=== PATIENT | male | born 2000 | race Two or more races ===

== ENCOUNTER 2020-03-11 11:36 | Emergency (ER) | payer SELFPAY ==
[2020-03-11 12:12] LABS: HEMATOCRIT 38.5 % (37.9-51.0); HEMOGLOBIN 13.9 g/dL (13.5-17.0); MEAN CORPUSCULAR HGB CONC 36.1 g/dL (32.0-36.0); MEAN CORPUSCULAR VOLUME 97 fl (80-97); PLATELET COUNT 227 10^3/uL (150-450); RED BLOOD COUNT 3.97 10^6/uL (4.35-5.55); RED CELL DISTRIBUTION WIDTH 13.2 % (11.5-14.0); WHITE BLOOD COUNT 5.9 10^3/uL (4.0-10.5)
[2020-03-11 12:34] LABS: ALBUMIN 4.1 g/dL (3.5-5.0); ALKALINE PHOSPHATASE 70 U/L (38-126); ASPARTATE AMINO TRANSFERASE 69 U/L (17-59); BILIRUBIN,TOTAL 0.5 mg/dL (0.2-1.3); BLOOD UREA NITROGEN 11 mg/dL (7-20); GLUCOSE 85 mg/dL (75-110); POTASSIUM 4.3 mmol/L (3.6-5.0); TOTAL PROTEIN 7.6 g/dL (6.3-8.2)
[2020-03-11 12:41] LABS: CARBON DIOXIDE 31 mmol/L (22-30); CHLORIDE 104 mmol/L (98-107)
[2020-03-11] MEDS ORDERED: NORMAL SALINE 1000 ML 1,000 ML IV ONE (12:41)
--- NOTE | 2020-03-11 12:42 | ER Document Report ---
ED General - General Chief Complaint: Cold Symptoms Stated Complaint: VOMITING,FEVER, DIARREHA Time Seen by Provider: 03/11/20 11:53 Mode of Arrival: Ambulatory Information source: Patient - HPI Notes: 19-year-old male presents emergency room for complaints of not feeling well over the last 2 weeks, was seen in urgent care and tested negative for COVID and mono. Patient states he is having fatigue, chills at home lightheadedness but also has been having nausea and vomited a couple of times. Patient states that he is a chronic marijuana user for well over a year and has increased due to COVID pandemic. Patient has not tried any alnj-nyr-cckuyan medications besides Tylenol. Denies fevers, chills, chest pain,palpitations, shortness of breath, dyspnea, diarrhea, abdominal pain, hematuria,blurred vision, double vision, loss of vision, speech changes, LH, dizziness, syncope, headaches, wheezing, ST, URI, neck pain, weakness, bowel or bladder dysfunction, saddle anesthesia, numbness or tingling in bilateral upper or lower extremities equally, muscle paralysis, weakness in bilateral upper or lower extremities equally or rash. Denies IV drug use. Patient states he is had low-grade fevers at home. MEDICATIONS: I agree with the patient medications as charted by the RN. ALLERGIES: I agree with the allergies as charted by the RN. PAST MEDICAL HISTORY/PAST SURGICAL HISTORY: Reviewed and agree as charted by RN. SOCIAL HISTORY: Reviewed and agree as charted by RN. FAMILY HISTORY: No significant familial comorbid conditions directly related to patient complaint EXAM: Reviewed vital signs as charted by RN. ALL OTHER SYSTEMS REVIEWED AND NEGATIVE. Dictation was performed using [employer] voice recognition software PHYSICAL EXAMINATION: GENERAL: Well-appearing, well-nourished and in no acute distress. HEAD: Atraumatic, normocephalic. EYES: Pupils equal round and reactive to light, extraocular movements intact, sclera anicteric, conjunctiva are normal. ENT: Nares patent, oropharynx clear without exudates. Moist mucous membranes. NECK: Normal range of motion, supple without lymphadenopathy LUNGS: Breath sounds clear to auscultation bilaterally and equal. No wheezes rales or rhonchi. HEART: Regular rate and rhythm without murmurs ABDOMEN: Soft, nontender, nondistended abdomen. No guarding, no rebound. No masses appreciated. Musculoskeletal: Normal range of motion, no pitting or edema. No cyanosis. NEUROLOGICAL: Cranial nerves grossly intact. Normal speech, normal gait. Normal sensory, motor exams PSYCH: Normal mood, normal affect. SKIN: Warm, Dry, normal turgor, no rashes or lesions noted. - Related Data Allergies/Adverse Reactions: No Known Allergies Allergy (Verified 03/11/20 14:02) Past Medical History - General Information source: Patient - Social History Smoking Status: Current Every Day Smoker Drug Abuse: Marijuana Family History: Reviewed & Not Pertinent Patient has homicidal ideation: No Review of Systems - Review of Systems Constitutional: No symptoms reported EENT: See HPI Cardiovascular: No symptoms reported Respiratory: No symptoms reported Gastrointestinal: No symptoms reported, Nausea, Vomiting. denies: Abdomen distended, Abdominal pain, Blood streaked bowels, Poor appetite, Poor fluid intake, Blood in vomit, Black stools, Rectal bleeding - last BM this morning. Genitourinary: No symptoms reported Male Genitourinary: No symptoms reported Musculoskeletal: No symptoms reported Skin: No symptoms reported Hematologic/Lymphatic: No symptoms reported Neurological/Psychological: No symptoms reported Physical Exam - Vital signs Vitals: Temp Pulse Resp BP Pulse Ox 98.1 F 93 18 118/66 99 03/11/20 12:04 03/11/20 12:04 03/11/20 12:04 03/11/20 12:04 03/11/20 12:04 Course - Re-evaluation Re-evalutation: 03/11/20 17:07 Afebrile vital stable no distress. Nurses notes reviewed. CBC negative for leukocytosis or anemia, CMP negative for renal dysfunction, no electrolyte disturbances. Liver function slightly elevated, patient states he has been taking "a lot of Tylenol lately". States his biggest concern was feeling nauseous and lightheaded, not drinking much due to the nausea. Patient states that he is a chronic heavy marijuana user. 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 Orthostatic vital signs were normal. Chest x-ray unremarkable. Urinalysis was normal, drug screen did test positive for marijuana. Discussed with patient that heavy marijuana use can cause cyclic vomiting so he needs to traumatic reduce or stop using marijuana. Patient states he rarely drinks alcohol and states that due to his increased use of Tylenol this is likely why his liver functions are slightly elevated. Patient after a liter of normal saline states he feels much better, discussed with patient that he does need to follow-up with a primary care provider for further evaluation. After performing a Medical Screening Examination, I estimate there is LOW risk for INTRACRANIAL HEMORRHAGE, ISCHEMIC CVA, MALIGNANT DYSRHYTHMIA, ACUTE CORONARY SYNDROME, MENINGITIS, PULMONARY EMBOLISM, or SEPSIS thus I consider the discharge disposition reasonable. I have reevaluated this patient multiple times and no significant life threatening changes are noted. The patient and I have discussed the diagnosis and risks, and we agree with discharging home with close follow-up with the understanding that symptoms and presentations can change. We also discussed returning to the Emergency Department immediately if new or worsening symptoms occur. We have discussed the symptoms which are most concerning (e.g., changing or worsening pain, weakness, vomiting, fever) that necessitate immediate return. After performing a Medical Screening Examination, I estimate there is LOW risk for ACUTE APPENDICITIS, BOWEL OBSTRUCTION, ACUTE CHOLECYSTITIS, PERFORATED DIVERTICULITIS, INCARCERATED HERNIA, PANCREATITIS, TESTICULAR TORSION or PERFORATED ULCER, thus I consider the discharge disposition reasonable. Also, there is no evidence or peritonitis, sepsis, or toxicity. I have reevaluated this patient multiple times and no significant life threatening changes are noted. The patient and I have discussed the diagnosis and risks, and we agree with discharging home with close follow-up with the understanding that symptoms and presentations can change. We also discussed returning to the Emergency Department immediately if new or worsening symptoms occur. We have discussed the symptoms which are most concerning (e.g., bloody stool, fever, changing or worsening pain, intractable vomiting - standard verbal up date) that necessitate immediate return. 03/11/20 17:08 03/11/20 17:09 - Vital Signs Vital signs: Temp Pulse Resp BP Pulse Ox 98.1 F 86 18 122/70 99 03/11/20 12:04 03/11/20 12:41 03/11/20 12:04 03/11/20 12:41 03/11/20 12:04 - Laboratory Result Diagrams: 03/11/20 11:52 03/11/20 11:52 Laboratory results interpreted by me: 03/11/20 03/11/20 11:52 11:52 RBC 3.97 L MCH 35.0 H MCHC 36.1 H Seg Neuts % (Manual) 35 L Monocytes % (Manual) 22 H Promyelocytes % 1 H Immature Leukocytes % 4 H Carbon Dioxide 31 H Anion Gap 3 L AST 69 H ALT 65 H Discharge - Discharge Clinical Impression: Nausea, Viral syndrome, Marijuana use Condition: Stable Disposition: HOME, SELF-CARE Instructions: Vomiting ([facility]), Intravenous (IV) Fluids ([facility]), Viral Syndrome ([facility]), Antinausea Medication ([facility]) Additional Instructions: Your influenza and your rapid test were negative. You were labs were normal, aside from slight elevation in your liver enzymes, this could be related to an increase in alcoholic beverages. Please try to reduce your alcohol consumption as well as your marijuana use as this could be a cause of feeling of nausea more vomiting. Your chest x-ray was normal today. Please follow-up with your primary care provider. Return immediately for any new or worsening symptoms. Follow up with primary care provider, call tomorrow to make followup appointment. Prescriptions: Ondansetron [Zofran Odt 4 mg Tablet] 1 - 2 tab PO Q4H PRN #15 tab.rapdis PRN Reason: For Nausea/Vomiting Forms: Return to Work Referrals: HUE ROSE MD [COMMUNITY BASED STAFF] - Follow up as needed
[2020-03-11 12:46] LABS: ANION GAP 3 (5-19)
--- NOTE | 2020-03-11 13:09 | RADIOLOGY REPORT (SQ) ---
EXAM DESCRIPTION: CHEST SINGLE VIEW IMAGES COMPLETED DATE/TIME: 03/11/2020 1:01 pm REASON FOR STUDY: fever COMPARISON: None. EXAM PARAMETERS: NUMBER OF VIEWS: One view. TECHNIQUE: Single frontal radiographic view of the chest acquired. RADIATION DOSE: NA LIMITATIONS: None. FINDINGS: LUNGS AND PLEURA: No opacities, masses or pneumothorax. No pleural effusion. MEDIASTINUM AND HILAR STRUCTURES: No masses. Contour normal. HEART AND VASCULAR STRUCTURES: Heart normal in size. Normal vasculature. BONES: No acute findings. HARDWARE: None in the chest. OTHER: No other significant finding. IMPRESSION: NO ACUTE RADIOGRAPHIC FINDING IN THE CHEST. TECHNICAL DOCUMENTATION: JOB ID: [id number] [employer]- All Rights Reserved Reading location - IP/workstation name: [email or web address]
[2020-03-11 13:11] LABS: ABSOLUTE LYMPHOCYTES# (MANUAL) 2.2 10^3/uL (0.5-4.7); ABSOLUTE MONOCYTES # (MANUAL) 1.3 10^3/uL (0.1-1.4); BASOPHILS % (MANUAL) 0 % (0-2); EOSINOPHILS % (MANUAL) 0 % (0-6); LYMPHOCYTES % (MANUAL) 32 % (13-45); MONOCYTES % (MANUAL) 22 % (3-13); SEGMENTED NEUTROPHILS % (MAN) 35 % (42-78); TOTAL CELLS COUNTED 100
[2020-03-11 13:13] LABS: ANISOCYTOSIS SLIGHT; IMMATURE MONONUCLEAR% (MANUAL) 4 % (0); PLATELET COMMENT ADEQUATE; PROMYELOCYTES % (MANUAL) 1 % (0)
[2020-03-11 13:30] LABS: A TYPE INFLUENZA AG NEGATIVE (NEGATIVE); B INFLUENZA AG NEGATIVE (NEGATIVE)
[2020-03-11 13:46] LABS: PATH REVIEW PATHOLOGIST REVIEWED
[2020-03-11 15:26] LABS: APPEARANCE,URINE CLEAR; BILIRUBIN,URINE NEGATIVE (NEGATIVE); COLOR,URINE YELLOW; GLUCOSE, URINE NEGATIVE (NEGATIVE); KETONES,URINE NEGATIVE (NEGATIVE); LEUKOCYTE ESTERASE,URINE NEGATIVE (NEGATIVE); NITRITE,URINE NEGATIVE (NEGATIVE); PROTEIN,URINE NEGATIVE (NEGATIVE); URINE SPECIFIC GRAVITY 1.016
[2020-03-11 15:44] LABS: URINE AMPHETAMINES SCREEN NEGATIVE; URINE BARBITURATES SCREEN NEGATIVE; URINE BENZODIAZEPINES SCREEN NEGATIVE; URINE COCAINE SCREEN NEGATIVE; URINE METHADONE SCREEN NEGATIVE; URINE PHENCYCLIDINE SCREEN NEGATIVE
[2020-03-11 15:45] LABS: URINE MARIJUANA (THC) SCREEN UNCONFIRMED POSITIVE
[2020-03-11 16:41] VITALS: BP 119/70
== END 2020-03-11 16:41 | disposition home or self-care (01) ==
LOC: ER 11:36
DX: B34.9 Viral infection, unspecified (principal); R11.2 Nausea with vomiting, unspecified; R42 Dizziness and giddiness; F12.10 Cannabis abuse, uncomplicated; F17.200 Nicotine dependence, unspecified, uncomplicated; R53.83 Other fatigue; R68.83 Chills (without fever)
CPT/HCPCS: 99284; 96360; 36415; 87070; 87880; 85025; 80053; 81001; 80307; 87804; 71045; J7030